=== PATIENT | female | born 2000 | race African-American/Black ===

== ENCOUNTER 2025-03-03 19:31 | Emergency (ER) | payer BC ==
[~2025-03-03] VITALS: Ht 167.6 cm; Wt 149.7 kg
[2025-03-03 21:36] VITALS: PULSE 92; RESP 16; TEMP 98.7; O2SAT 100
== END 2025-03-03 21:39 | disposition home or self-care (01) ==
LOC: ER 20:06
DX: R60.9 Edema, unspecified (principal); M25.561 Pain in right knee
CPT/HCPCS: 93970; 99283

== ENCOUNTER 2025-05-15 22:59 | Emergency (ER) | payer BC ==
[~2025-05-15] VITALS: Ht 167.6 cm; Wt 157.9 kg
[2025-05-15 23:31] VITALS: PULSE 88; RESP 16; TEMP 98
[2025-05-16] MEDS: KETOROLAC TROMETHAMINE 60 MG/2 ML VIAL IM ONE (00:05)
[2025-05-16] MEDS: ONDANSETRON HCL 4 MG ORAL DISINTEGRATING TAB PO ONE (00:05)
[2025-05-16] MEDS: CYCLOBENZAPRINE HCL 10 MG TAB PO ONE (00:05)
[2025-05-16] MEDS ORDERED: ONDANSETRON ODT4 MG PO (01:21)
[2025-05-16] MEDS ORDERED: CYCLOBENZAPRINE10 MG PO (01:21)
[2025-05-16 01:37] VITALS: BP 110/72; PULSE 70; RESP 16; TEMP 98; O2SAT 100
== END 2025-05-16 01:38 | disposition home or self-care (01) ==
LOC: ER 23:59
DX: R11.0 Nausea (principal); M54.50 Low back pain, unspecified
CPT/HCPCS: 99283; J1885; Q0162